=== PATIENT | female | born 1995 | race Caucasian/White ===

== ENCOUNTER → 2018-03-10 15:00 | Outpatient (CLI) | payer OTHER, SELFPAY | PROVIDERS: Visit Provider Obstetrics & Gynecology | DX: Z12.4 Encounter for screening for malignant neoplasm of cervix (principal) ==

== ENCOUNTER → 2018-03-31 16:04 | Outpatient (CLI) | payer OTHER, SELFPAY ==
--- NOTE | 2018-03-31 16:06 | ECHOD_ITS ---
Reason For Study: murmur Procedure This was a 2D Doppler, Color Flow transthoracic echocardiogram. The exam was of fair technical quality due to diminished acoustic windows. The study was technically difficult. Exam performed in department. Left Ventricle Normal LV size. Left ventricular systolic function is normal. The estimated ejection fraction is 60 %. Normal diastology for age. No regional wall motion abnormalities noted. Right Ventricle Normal RV size. Normal systolic function. Atria Normal left atrium. Normal right atrium. No doppler evidence for ASD. Mitral Valve There is no mitral annular calcification. Normal mitral valve. Mild (1+) eccentric mitral valve insufficiency. Tricuspid Valve Normal tricuspid valve. Trivial tricuspid valve insufficiency. Unable to estimate RV systolic pressure/pulmonary artery pressure due to technically difficult study. Aortic Valve Trisinus/trileaflet aortic valve. Normal aortic valve. Trivial aortic valve insufficiency. Pulmonic Valve The pulmonic valve is not well visualized. Great Vessels The aortic root is not well visualized. Pericardium/Pleural No pericardial effusion. MMode/2D Measurements & Calculations LVIDd: 3.9 cm IVSd: 0.96 cm LVOT diam: 2.0 cm LVIDs: 2.7 cm LVPWd: 1.1 cm LVOT area: 3.0 cm2 RVDd: 2.9 cm FS: 29.8 % LAV(MOD-bp): 25.3 ml LA A4 area: 12.0 cm2 RA A4 area: 14.8 cm2 LAV(MOD-bp) Indexed: 14.6 ml/m2 LAV(MOD-sp2): 20.7 ml LAV(MOD-sp4): 24.1 ml Time Measurements MV dec time: 0.24 sec Doppler Measurements & Calculations MV E max dre: 68.0 cm/sec Lat Peak E' Dre: 15.0 cm/sec Med Peak E' Dre: 13.6 cm/sec MV A max dre: 38.2 cm/sec E/E' lat: 4.5 E/E' med: 5.0 MV E/A: 1.8 Ao V2 max: 169.1 cm/sec AI max dre: 364.8 cm/sec LV V1 max: 92.9 cm/sec Ao max P.6 mmHg AI max P.3 mmHg LV V1 max P.4 mmHg Ao V2 mean: 92.0 cm/sec AI dec slope: 196.6 cm/sec2 LV V1 mean P.9 mmHg Ao mean P.9 mmHg AI P1/2t: 543.5 msec LV V1 mean: 64.2 cm/sec Ao V2 VTI: 24.2 cm LV V1 VTI: 19.0 cm MASTER(I,D): 2.4 cm2 MASTER(V,D): 1.6 cm2 SV(LVOT): 57.1 ml PA V2 max: 104.5 cm/sec PI end-d dre: 73.2 cm/sec Interpretation Summary The study was technically difficult. Left ventricular systolic function is normal. The estimated ejection fraction is 60 %. Mild (1+) eccentric mitral valve insufficiency. Trivial tricuspid valve insufficiency. Trivial aortic valve insufficiency. The aortic root is not well visualized. Unable to estimate RV systolic pressure/pulmonary artery pressure due to technically difficult study. Normal diastology for age. Comment: AV spectral doppler Peak Gradient and Mean Gradient considered non hemodynamically significant. Ordering Physician: Cayetano Chen Referring Physician: Obey Seymour MD Performed By: Beata Mtz, RDMIGUEL ANGEL, RVT
== END ==
PROVIDERS: Family Provider Internal Medicine; PCP Internal Medicine; Visit Provider Internal Medicine Cardiovascular Disease
DX: Q25.3 Supravalvular aortic stenosis (principal); Z87.74 Personal history of (corrected) congenital malformations of heart and circulatory system; R00.0 Tachycardia, unspecified; R00.2 Palpitations
CPT/HCPCS: 93306

== ENCOUNTER 2019-07-22 12:12 | Emergency (ER) | payer OTHER, SELFPAY ==
[2019-07-22 12:13] VITALS: BP 111/72; PULSE 184; RESP 20; TEMP 36.6; O2SAT 99; BMI 29.0
[2019-07-22] MEDS: Adenosine 6 MG/2 ML Syringe IV (12:18)
--- NOTE | 2019-07-22 12:25 | EKG12_ITS ---
Test Reason : SVT Blood Pressure : / mmHG Vent. Rate : 114 BPM Atrial Rate : 114 BPM P-R Int : 116 ms QRS Dur : 084 ms QT Int : 328 ms P-R-T Axes : 073 105 064 degrees QTc Int : 452 ms Sinus tachycardia Possible Left atrial enlargement Rightward axis Borderline ECG Confirmed by BUCK TRUJILLO, HECTOR ([id number]), development editor NORA GREWAL ([id number]) on 07/24/2019 10:57:11 AM Referred By: DIANA Confirmed By:HECTOR JANE MD
--- NOTE | 2019-07-22 12:25 | RAD_ITS ---
STUDY: X-RAY CHEST REASON FOR EXAM: Female, 23 years old. TECHNIQUE: 1 view COMPARISON: None. FINDINGS: The lungs are clear and expanded. There is no demonstrated pleural abnormality. Normal size heart. Normal mediastinum and justen. Normal visualized pulmonary arteries. Normal visualized aortic arch and descending thoracic aorta. Normal visualized thoracic spine. Normal visualized ribs, clavicles, and shoulders. There is no demonstrated abnormality of the visualized soft tissue structures of the upper abdomen. RAD/Chest 1 View (Portable) IMPRESSION: Normal x-ray examination of the chest. Electronically Signed: Fely Barr, at 12:42 EST Tel , Service support ,
[2019-07-22] MEDS: Aspirin 81 MG TAB.CHEW 324 MG PO (12:29)
--- NOTE | 2019-07-22 12:29 | EKG12_ITS ---
Test Reason : SVT Blood Pressure : / mmHG Vent. Rate : 176 BPM Atrial Rate : 150 BPM P-R Int : 000 ms QRS Dur : 086 ms QT Int : 272 ms P-R-T Axes : 000 105 -14 degrees QTc Int : 465 ms Supraventricular tachycardia Rightward axis Marked ST abnormality, possible inferior subendocardial injury Abnormal ECG Confirmed by BUCK TRUJILLO, HECTOR ([id number]), editorial cartoonist NORA GREWAL ([id number]) on 07/24/2019 10:57:26 AM Referred By: DIANA Confirmed By:HECTOR JANE MD
[2019-07-22 12:30] VITALS: O2SAT 99
[2019-07-22 12:34] LABS: Absolute Lymphocyte Count 2.83 X10^3/uL (0.83-4.51); Absolute Neutrophil Count 7.8 X10^3/uL (2.0-7.7); Basophil# 0.11 X10^3/uL; Basophil% 0.9 % (0-1); Eosinophil# 0.26 X10^3/uL; Eosinophils% 2.2 % (0-5); Hematocrit 46.9 % (37-47); Hemoglobin 16.2 g/dL (12.0-15.0); Lymphocyte # 2.83 X10^3/ul (4.0); Lymphocyte % 23.9 % (19-41); Mean Corp Hgb Conc 34.5 g/dL (32-36); Mean Corpuscular Hgb 29.7 pg (27.0-32.0); Mean Corpuscular Volume 85.9 fL (81-99); Mean Platelet Vol. 9.8 fl (6.2-12.0); Monocyte# 0.82 X10^3/uL; Monocyte% 6.9 % (0-10); NRBC Flagged by Analyzer 0 % (0-5); Neutrophil # 7.77 X10^3/uL (2.7-7.7); Neutrophil % 65.8 % (47-70); Platelet Count 313 K/mm3 (150-450); RBC Distribution Width CV 11.8 % (11.6-14.6); RBC Distribution Width SD 36.6 fl (35.1-43.9); Red Blood Count 5.46 M/mm3 (4.2-5.4); White Blood Count 11.8 K/mm3 (4.4-11.0)
[2019-07-22 12:50] LABS: Anion Gap 8 (5-15); BUN 9 mg/dL (7-18); BUN/Creat Ratio 9.1 RATIO (10-20); Calcium,Total 9.3 mg/dL (8.5-10.1); Chloride 106 mmol/L (98-107); Creatinine, Serum 0.99 mg/dL (0.55-1.02); EST Glomerular Filtration Rate 73 mL/min (>60); Est Glom Filt Rate - Afr Amer 89 mL/min (>60); Estimated Creatinine Clearance 73.11 ml/min; Glucose 99 mg/dL (74-106); Potassium 3.7 mmol/L (3.5-5.1); Sodium Level 139 mmol/L (136-145)
[2019-07-22 13:00] LABS: Internal QC Validated? YES +Cl - CLEAR BKGD; Pregnancy, Serum, hCG Quali. NEGATIVE Negative
--- NOTE | 2019-07-22 13:22 | ED.DCSUM_ITS ---
- ER Visit Summary Date of Service: 07/22/19 Chief Complaint: Fast heart rate History of Present Illness: The patient is a 23 F with a fast heart rate. Symptoms started just prior to arrival. She had this before, on monitoring, but she never required intervention. She tried vagal maneuvers, but they did not help. She denies any other symptoms. She has a history of supravalvular aortic stenosis which was treated operatively when she was a child. Physical Examination: Afebrile and vital signs unremarkable except for a heart rate of 184. Heart is tachycardic but regular. No respiratory distress. Skin is normal. Test Results: See below Emergency Department Course and Treatment: Patient was placed on a monitor. Nursing attempted vagal maneuvers prior to my arrival in the room. She continued to be in SVT. Patient was treated with 6 mg of adenosine and this broke the SVT. She was in sinus rhythm. Follow-up EKG showed sinus tachycardia at a rate of 114. No sign of ischemia or infarction pattern. Labs unremarkable. Patient was monitored. She remained in sinus rhythm. Normal blood pressure and mentation. No symptoms or distress. Patient was discussed with Dr. Seymour. Further recommendations. Follow-up with Dr. Chen. Treatment Plan: As above Disposition: Discharge Impression: 1. Supraventricular tachycardia This note was generated with [employer] dictation software. It may contain incorrect words, spelling, and punctuation that were not noted in review of the chart prior to signing ED Disposition - Plan for ED Patient: Referrals: Marciano Cavazos MD [Primary Care Provider] -
--- NOTE | 2019-07-22 13:24 | ED.DEP ---
ED Disposition - Plan for ED Patient: Instructions: [facility]ERS[facility], [employer] Referrals: Cayetano Chen MD [STAFF PHYSICIAN] -
[2019-07-22 13:39] VITALS: BP 111/70; BP 117/70; PULSE 98; RESP 15; RESP 16; O2SAT 98
== END 2019-07-22 13:40 | disposition home or self-care (01) ==
LOC: ED 12:42
PROVIDERS: Emergency Provider Emergency Medicine; Family Provider Internal Medicine; PCP Internal Medicine
DX: I47.1 Supraventricular tachycardia (principal); Z87.74 Personal history of (corrected) congenital malformations of heart and circulatory system
CPT/HCPCS: 71045; 80048; 84484; 84703; 85025; 93005; 96374; 99284; J7030; A4216; J0153

== ENCOUNTER → 2020-04-14 16:18 | Outpatient (CLI) | payer OTHER, SELFPAY ==
[2020-04-13 16:55] VITALS: BMI 29.0
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
== END ==
PROVIDERS: PCP Internal Medicine; Referring Provider Internal Medicine; Visit Provider Internal Medicine
DX: M54.2 Cervicalgia (principal); G89.29 Other chronic pain
CPT/HCPCS: 72040

== ENCOUNTER → 2021-04-03 | Outpatient (CLI) | payer BC, SELFPAY ==
[2021-04-03 15:27] VITALS: BMI 26.9
[2021-04-03 16:00] LABS: Mucous, Urine 0 SEEN /hpf (<or=2+); Squamous Epithelial Cells - UA 0 SEEN /hpf (5-10); White Blood Cells 0 SEEN /hpf (0-5)
[2021-04-03 16:39] LABS: Color, Urine Yellow (Yellow); Glucose, Dipstick Normal (Normal); Ketone-Dipstick Negative (Negative); Leukocyte Esterase-Dipstick Negative /ul (Negative); Nitrite-Dipstick Negative (Negative); Occult Blood-Urine 25 /ul (Negative); Protein-Dipstick Negative (Negative); Specific Gravity, Urine 1.025 (1.002-1.030); Urine Bilirubin Dipstick Negative (Negative); Urine Clarity Clear (Clear); Urine Urobilinogen Normal (Normal)
[2021-04-03 16:58] LABS: Bacteria RARE /hpf (None Seen); Red Blood Cells-Urine 0-5 SEEN /hpf (0-5)
== END | disposition home or self-care (01) ==
LOC: LABSPEC 15:58
PROVIDERS: PCP Internal Medicine; Referring Provider Internal Medicine; Visit Provider Internal Medicine
DX: R80.9 Proteinuria, unspecified (principal)
CPT/HCPCS: 81001

== ENCOUNTER → 2021-05-16 | Outpatient (CLI) | payer BC, SELFPAY ==
[2021-05-19 16:51] LABS: HPV Reflexed? NOT INDICATED
== END | disposition home or self-care (01) ==
LOC: LABSPEC 16:38
PROVIDERS: PCP Internal Medicine; Referring Provider Physician Assistant; Visit Provider Physician Assistant
DX: Z12.4 Encounter for screening for malignant neoplasm of cervix (principal)
CPT/HCPCS: 88175; G0145

== ENCOUNTER 2021-09-13 17:37 | Outpatient (CLI) | payer BC, SELFPAY ==
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
== END 2021-09-13 23:59 | disposition short-term general hospital (02) ==
PROVIDERS: PCP Internal Medicine; Visit Provider Nurse Practitioner Family
DX: S13.4XXA Sprain of ligaments of cervical spine, initial encounter (principal); X58.XXXA Exposure to other specified factors, initial encounter; M50.221 Other cervical disc displacement at C4-C5 level; M50.222 Other cervical disc displacement at C5-C6 level; M48.02 Spinal stenosis, cervical region
CPT/HCPCS: 72141

== ENCOUNTER → 2022-06-01 | Outpatient (CLI) | payer OTHER, SELFPAY ==
[2022-06-01 12:06] LABS: Absolute Lymphocyte Count 1.45 X10^3/uL (0.83-4.51); Absolute Neutrophil Count 6.4 X10^3/uL (2.0-7.7); Basophil# 0.09 X10^3/uL; Eosinophil# 0.08 X10^3/uL; Eosinophils% 0.9 % (0-5); Hematocrit 47.5 % (37-47); Hemoglobin 15.9 g/dL (12.0-15.0); Lymphocyte # 1.45 X10^3/ul (0.83-4.51); Lymphocyte % 16.9 % (19-41); Mean Corp Hgb Conc 33.5 g/dL (32-36); Mean Corpuscular Hgb 29.6 pg (27.0-32.0); Mean Corpuscular Volume 88.5 fL (81-99); Mean Platelet Vol. 9.9 fl (6.2-12.0); Monocyte# 0.53 X10^3/uL; Monocyte% 6.2 % (0-10); NRBC Flagged by Analyzer 0 % (0-5); Neutrophil # 6.38 X10^3/uL (2.7-7.7); Neutrophil % 74.4 % (47-70); Platelet Count 332 K/mm3 (150-450); RBC Distribution Width CV 12.4 % (11.6-14.6); Red Blood Count 5.37 M/mm3 (4.2-5.4); White Blood Count 8.6 K/mm3 (4.4-11.0)
[2022-06-01 12:43] LABS: ALB/GLOB Ratio 1.1 RATIO (0.9-2.4); AST(SGOT) 11 U/L (15-37); Alanine Aminotransfer ALT/SGPT 25 U/L (13-56); Albumin, Serum 4.2 g/dL (3.2-5.0); Alkaline Phosphatase 59 U/L (45-117); Anion Gap 8 (5-15); BUN 7 mg/dL (7-18); BUN/Creat Ratio 7.4 RATIO (10-20); Calcium,Total 9.4 mg/dL (8.5-10.1); Chloride 104 mmol/L (98-107); Cholesterol 195 mg/dL (200); Creatinine, Serum 0.94 mg/dL (0.55-1.02); EST Glomerular Filtration Rate 76 mL/min (>60); Est Glom Filt Rate - Afr Amer 92 mL/min (>60); Globulin 3.7 g/dL (2.2-4.2); Glucose 88 mg/dL (74-106); High Density Lipoprotein 73 mg/dL; Protein, Total 7.9 g/dL (6.4-8.2); Sodium Level 138 mmol/L (136-145); Triglycerides 63 mg/dL; Very Low Density Lipoprotein 13 mg/dL (5-40)
== END | disposition home or self-care (01) ==
LOC: BIMLAB 10:05
PROVIDERS: PCP Internal Medicine; Referring Provider Internal Medicine; Visit Provider Internal Medicine
DX: Z00.00 Encounter for general adult medical examination without abnormal findings (principal)
CPT/HCPCS: 36415; 80053; 80061; 85025

== ENCOUNTER → 2022-08-03 | Outpatient (CLI) | payer OTHER, SELFPAY ==
[2022-08-03 12:38] LABS: Thyroid Stim Hormone (TSH) 0.49 uIU/mL (0.358-3.74)
== END | disposition home or self-care (01) ==
LOC: BIMLAB 08:14
PROVIDERS: PCP Internal Medicine; Visit Provider Nurse Practitioner Family
DX: F41.8 Other specified anxiety disorders (principal)
CPT/HCPCS: 36415; 84443

== ENCOUNTER 2023-03-08 11:58 | Emergency (ER) | payer OTHER, SELFPAY ==
[2023-03-08 11:59] VITALS: BP 120/64; PULSE 84; RESP 14; TEMP 36.4; O2SAT 98; BMI 25.9
--- NOTE | 2023-03-08 12:31 | EDS_ITS ---
HPI <CRISTINA Erickson - Last Filed: 03/08/23 13:24> HPI - GI History of Present Illness Chief Complaint: Abd Pain Narrative Narrative: 27-year-old female presents with 6 days of abdominal pain and alternating diarrhea with constipation. Earlier in the week she was having loose stools every 30 minutes but it is slowed down and now occasionally she feels like she cannot go. She took a laxative this morning and had a watery episode of stool. She has had p.o. intake and some nausea but no vomiting. No abdominal distention. No history of surgeries or obstruction. She states she talked to her friend who is a nurse who told her to be evaluated for a bowel obstruction. Of note 1 day after symptom onset she started taking doxycycline for Lyme disease and a probiotic. PFSH <CRISTINA Erickson - Last Filed: 03/08/23 13:24> PFSH Medical History Anxiety Arthritis Back pain Chronic neck pain Chronic thoracic back pain Depression Elevated blood pressure reading Excessive cerumen in both ear canals Heart murmur Intertrigo Macromastia Menorrhagia with irregular cycle Preventative health care Proteinuria Shoulder pain Shoulder pain Supravalvar aortic stenosis SVT (supraventricular tachycardia) Tachycardia Allergy/AdvReac Type Severity Reaction Status Date / Time amoxicillin Allergy Hives Verified 03/08/23 11:58 Family History Father hypercholesterolemia Mother Thyroid disorder Other Asthma Depression High cholesterol Surgical History History of wisdom tooth extraction S/P repair of supravalvar aortic stenosis (~04/20/04) Social History Smoking Status: Never smoker alcohol intake: current alcohol intake frequency: holidays/special occasions only substance use type: does not use what type of physical activity do you participate in: running and weight training frequency: 3-4 times per week additional social history: DOES TAKE ASPIRIN NEEDED DOES TAKE IBUPROFEN NEEDED ROS <CRISTINA Erickson - Last Filed: 03/08/23 13:24> ROS ED ROS Narrative Constitutional: Negative for fever, chills, malaise. CVS: Negative for chest pain. Respiratory: Negative for shortness of breath, cough. GI: Positive for abdominal pain, nausea, vomiting, diarrhea, constipation. Negative for melena, hematochezia. : Negative for dysuria. EXAM <CRISTINA Erickson - Last Filed: 03/08/23 13:24> Physical Exam Narrative Exam Narrative: CONST: Patient sitting in no acute distress. EYES: Normal inspection. ENT: Normal inspection, moist mucous membranes. NECK: Normal inspection. RESP: No respiratory distress, CTAB. CVS: Regular rate and rhythm, no murmur, no gallop. ABD: Soft with minimal generalized tenderness, no guarding or rebound, nondistended. Normal bowel sounds x4. SKIN: Color normal, no rash, warm, dry, intact. EXTREMITIES: Normal appearance, no pedal edema. NEURO: Oriented x4. PSYCH: Normal affect. Const Vital Signs: 03/08/23 11:59 03/08/23 13:35 Temperature 97.6 F L Temperature Source Temporal Pulse Rate 84 Respiratory Rate 14 16 Blood Pressure 120/64 115/71 Blood Pressure Mean 82 Pulse Ox 98 98 Oxygen Delivery Method Room Air <Dr. Tip Kasper DO - Last Filed: 03/08/23 15:44> Physical Exam Const Vital Signs: 03/08/23 11:59 03/08/23 13:35 Temperature 97.6 F L Temperature Source Temporal Pulse Rate 84 Respiratory Rate 14 16 Blood Pressure 120/64 115/71 Blood Pressure Mean 82 Pulse Ox 98 98 Oxygen Delivery Method Room Air MDM <CRISTINA Erickson - Last Filed: 03/08/23 13:24> [facility] Narrative Medical decision making narrative: Patient has had 6 days of abdominal pain and alternating diarrhea and constipation. She has had normal p.o. intake with no vomiting. She appears well and nontoxic and is afebrile with normal vital signs. She has moist mucous membranes. Cardiopulmonary exam is normal. Abdomen is soft and nondistended with normal bowel sounds. She reported generalized tenderness but has no objective findings. I reassured her I do not think she has a bowel obstruction and does not need acute work-up for this. I discussed that most diarrheal illnesses are viral and she also has several other factors such as taking a probiotic and doxycycline after the symptoms started that could exacerbate it. She declined Bentyl and will continue symptomatic treatment at home. She was given return precautions and discharged in stable condition. Differential: Acute viral diarrhea, gastroenteritis, less likely diverticulitis, bowel obstruction <Dr. Tip Kasper, DO - Last Filed: 03/08/23 15:44> MDM Treatment and Re-Evaluation :: ED attending note: I evaluated the patient in conjunction with the RACHELLE. I agree with his/her statements and above findings. I have personally performed a face to face assessment of the patient and have reviewed the RACHELLE Note. I performed a substantive portion of the visit including all aspects of the following. I personally saw the patient performed chart review, physical exam, reviewed labs, imaging (if obtained), and formulated a treatment and management plan. Exam: Nursing triage notes reviewed, Vital signs reviewed Constitutional: please see mdm HENT: MMM Eyes: Pupils equal round and reactive to light, Extraocular muscles intact Neck: No stridor, no JVD, full neck ROM Lungs: Clear to auscultation, No wheezing or rales. No increased work of breathing, no conversational dyspnea, no accessory muscle use, no nasal flaring. No respiratory distress noted Heart: Regular rate and rhythm, No murmurs, No rubs and No gallops, 2+ distal p ulses (radial, femoral, posterior tibial) in all extremities Abdomen: Soft, there is no tenderness, rigidity, rebound or guarding, no obvious peritoneal signs, no palpable pulsatile abdominal masses, no auscultated abdominal bruit : No CVAT Extremities: No edema Neuro: No focal neurological deficits, cranial nerves II through XII intact, 5/5 strength in all extremities. Intact sensation to light touch in all extremities, 2+ reflexes bilateral patella dens. Normal gait. No ataxia. Skin: No rash or lesions noted MDM/plan: Chief Complaint: diarrhea External records reviewed: No recent advanced imaging of the abdomen or pelvis I considered the following differential diagnosis: Dehydration, doxycycline induced gastroenteritis, small bowel obstruction, perforation Patient abdominal exam was benign. Not consistent with obstruction or perforation. Offer the patient labs, urine test and test. She refused stating if I did not think she had a bowel obstruction she did not want to stay for additional blood test. Patient was alert and orient x3 and had capacity to make medical decisions. She is discharged stable condition Shared decision making: I will have a discussion with the patient and or visitors regarding risk/benefits of further testing or admission. They will be made aware of of the risk/benefits inherent in this decision they will be given the opportunity to voice understanding. Consults: Discharge Plan Triage Chief Complaint: Abd Pain ED Midlevel Provider: Carla Guerrero ED Provider: Tip Kasper Dx/Rx/DC Orders Clinical Impression: Acute diarrhea, Abdominal pain Instructions: Abdominal Pain Primary Care Provider: Marciano Cavazos Referrals: Marciano Cavazos MD [Primary Care Provider] - Activity Restrictions/Additional Instructions: Based on your examination I do not think you have a bowel obstruction. Most diarrhea is viral and resolves within 7 to 10 days. Stay hydrated, take Tylenol Motrin as needed, and return to ER if symptoms worsen. Disposition Disposition: Home, Self Care Discharge Date/Time: 03/08/23 13:36
[2023-03-08 13:35] VITALS: BP 115/71; RESP 16; O2SAT 98
== END 2023-03-08 13:36 | disposition home or self-care (01) ==
LOC: ED 13:27
PROVIDERS: Emergency Provider Emergency Medicine; PCP Internal Medicine; Visit Provider Emergency Medicine
DX: R10.9 Unspecified abdominal pain (principal); R19.7 Diarrhea, unspecified
CPT/HCPCS: 99282

== ENCOUNTER → 2023-05-22 | Outpatient (CLI) | payer OTHER, SELFPAY ==
[2023-05-22 13:06] LABS: Absolute Lymphocyte Count 1.93 X10^3/uL (0.83-4.51); Absolute Neutrophil Count 6.4 X10^3/uL (2.0-7.7); Basophil# 0.11 X10^3/uL; Basophil% 1.1 % (0-1); Eosinophil# 0.21 X10^3/uL; Eosinophils% 2.2 % (0-5); Hematocrit 48.3 % (37-47); Hemoglobin 15.7 g/dL (12.0-15.0); Lymphocyte # 1.93 X10^3/ul (0.83-4.51); Lymphocyte % 20.1 % (19-41); Mean Corp Hgb Conc 32.5 g/dL (32-36); Mean Corpuscular Hgb 28.9 pg (27.0-32.0); Mean Platelet Vol. 10.2 fl (6.2-12.0); Monocyte# 0.91 X10^3/uL; Monocyte% 9.5 % (0-10); NRBC Flagged by Analyzer 0 % (0-5); Neutrophil % 66.9 % (47-70); Platelet Count 325 K/mm3 (150-450); Red Blood Count 5.43 M/mm3 (4.2-5.4); White Blood Count 9.6 K/mm3 (4.4-11.0)
[2023-05-22 13:16] LABS: ALB/GLOB Ratio 1.2 RATIO (0.9-2.4); AST(SGOT) 16 U/L (15-37); Alanine Aminotransfer ALT/SGPT 37 U/L (13-56); Albumin, Serum 4.2 g/dL (3.2-5.0); Alkaline Phosphatase 57 U/L (45-117); Anion Gap 5 (5-15); BUN 12 mg/dL (7-18); BUN/Creat Ratio 12.4 RATIO (10-20); Calcium,Total 9.5 mg/dL (8.5-10.1); Chloride 107 mmol/L (98-107); Creatinine, Serum 0.97 mg/dL (0.55-1.02); EST Glomerular Filtration Rate 73 mL/min (>60); Est Glom Filt Rate - Afr Amer 88 mL/min (>60); Globulin 3.5 g/dL (2.2-4.2); Glucose 88 mg/dL (74-106); Potassium 4.2 mmol/L (3.5-5.1); Protein, Total 7.7 g/dL (6.4-8.2); Sodium Level 139 mmol/L (136-145)
[2023-05-27 06:07] LABS: G6PD Quant Test 254 (155-399); Red Blood Cell Count Test/G6PD 5.32 x10E6/uL (3.77-5.28)
== END | disposition home or self-care (01) ==
LOC: LABSPEC 12:36
PROVIDERS: PCP Internal Medicine; Referring Provider Nurse Practitioner Family; Visit Provider Nurse Practitioner Family
DX: B60.00 Babesiosis, unspecified (principal); R53.82 Chronic fatigue, unspecified
CPT/HCPCS: 80053; 82955; 85025